=== PATIENT | female | born 1945 ===

== ENCOUNTER 2017-09-12 22:34 | Emergency (ER) | payer SELFPAY ==
[2017-09-12 22:43] VITALS: BP 126/80; PULSE 74; RESP 16; TEMP 98; O2SAT 99
--- NOTE | 2017-09-12 23:11 | ED PDOC ---
Lower Extremity Pain/Injury Time Seen by Provider: 09/12/17 22:53 Chief Complaint (Nursing): Lower Extremity Problem/Injury Chief Complaint (Provider): Pain after a ceiling fell on her while sleeping History Per: Patient History/Exam Limitations: no limitations Onset/Duration Of Symptoms: Mins Current Symptoms Are (Timing): Still Present Additional Complaint(s): 71 yo female with no past medical history presents with torso pain, head pain and right knee pain. PT states she was sleeping when she heard the ceiling crack. PT states she was with her grandson and put her right arm over him. Ceiling landed on the chest/abdomen and left arm/leg. Pt did not take anything for pain. Past Medical History Reviewed: Historical Data, Nursing Documentation, Vital Signs Vital Signs: Last Vital Signs Temp 98.0 F 09/12/17 22:42 Pulse 74 09/12/17 22:42 Resp 16 09/12/17 22:42 BP 126/80 09/12/17 22:42 Pulse Ox 99 09/12/17 22:42 - Medical History PMH: No Chronic Diseases - Surgical History Surgical History: No Surg Hx - Family History Family History: States: No Known Family Hx - Living Arrangements Living Arrangements: With Family - Allergies Allergies/Adverse Reactions: Allergies Allergy/AdvReac Type Severity Reaction Status Date / Time No Known Allergies Allergy Verified 09/12/17 22:43 Review of Systems ROS Statement: Except As Marked, All Systems Reviewed And Found Negative Constitutional: Negative for: Fever, Chills Cardiovascular: Positive for: Chest Pain Gastrointestinal: Positive for: Abdominal Pain Skin: Positive for: Other (Left knee pain, left shoulder pain ) Physical Exam - Reviewed Nursing Documentation Reviewed: Yes Vital Signs Reviewed: Yes - Physical Exam Appears: Positive for: Well, Non-toxic, No Acute Distress Head Exam: Positive for: ATRAUMATIC, NORMAL INSPECTION, NORMOCEPHALIC Skin: Positive for: Normal Color (No ecchymosis ), Warm Eye Exam: Positive for: EOMI, Normal appearance, PERRL ENT: Positive for: Normal ENT Inspection Neck: Positive for: Normal, Painless ROM Cardiovascular/Chest: Positive for: Regular Rate, Rhythm. Negative for: Chest Non Tender Respiratory: Positive for: Normal Breath Sounds. Negative for: Decreased Breath Sounds, Accessory Muscle Use, Respiratory Distress Gastrointestinal/Abdominal: Positive for: Normal Exam, Soft, Tenderness Back: Positive for: Normal Inspection Extremity: Negative for: Normal ROM (Decreased in the left shoulder and the left knee due to pain, no edema ) Neurologic/Psych: Positive for: Alert, Oriented - ECG O2 Sat by Pulse Oximetry: 99 Medical Decision Making Medical Decision Making: Shoulder x-ray: No acute fracture or dislocation Knee x-ray: No acute fracture or dislocation Chest CT: Pending Abdomen CT:Pending Head CT: Pending Disposition - Clinical Impression Clinical Impression: Whole body pain - Patient ED Disposition Is Patient to be Admitted: Transfer of Care - Disposition Disposition: Transfer of Care Disposition Time: 23:55 Condition: STABLE Forms: [facility] (Maltese)
--- NOTE | 2017-09-12 23:54 | ED PDOC ---
- ECG O2 Sat by Pulse Oximetry: 99 (RA) Pulse Ox Interpretation: Normal Medical Decision Making Medical Decision Making: Patient endorsed to functional tester typewritersAly PA-C, at 0000 due to shift change. Pertinent details reviewed. Patient pending CT evaluation, EKG, and further disposition. 0010 EKG: NSR @70bpm (-) ST elevations, QTc 408 0040 EXAM: CT Head Without Intravenous Contrast CLINICAL HISTORY: 71 years old, female; Injury or trauma; Injury Ceiling fell on patient; Initial encounter; Concussion / head injury; Consciousness not specified; Additional info: Pain, ceiling fell on patient while sleeping TECHNIQUE: Axial computed tomography images of the head/brain without intravenous contrast. All CT scans at this facility use one or more dose reduction techniques, viz.: automated exposure control; ma/kV adjustment per patient size (including targeted exams where dose is matched to indication; i.e. head); or iterative reconstruction technique. Coronal and sagittal reformatted images were created and reviewed. COMPARISON: No relevant prior studies available. FINDINGS: Brain: Mild atrophy. No intracranial hemorrhage. No mass. No edema. Ventricles: No hydrocephalus. Bones/joints: No acute fracture. Soft tissues: Unremarkable. Lymph nodes: Probable intraparotid lymph nodes. Sinuses: Scattered minimal to mild mucosal thickening. Tiny RIGHT maxillary retention cyst. Mastoid air cells: No mastoid effusion. Orbits: Unremarkable as visualized. IMPRESSION: 1. No intracranial hemorrhage. 2. Incidental/non-acute findings are described above. Thank you for allowing us to participate in the care of your patient. Dictated and Authenticated by: Baudilio Clemens MD 09/13/2017 12:21 AM Eastern Time ([place] & [place]) EXAM: CT Chest Without Intravenous Contrast CLINICAL HISTORY: 71 years old, female; Pain and injury or trauma; Injury Ceiling fell on patient while sleeping; Initial encounter; Blunt trauma (contusions or hematomas); Other: Left shoulder area; Additional info: Pain, ceiling fell on patient while sleeping TECHNIQUE: Axial computed tomography images of the chest without intravenous contrast. All CT scans at this facility use one or more dose reduction techniques, viz.: automated exposure control; ma/kV adjustment per patient size (including targeted exams where dose is matched to indication; i.e. head); or iterative reconstruction technique. Coronal and sagittal reformatted images were created and reviewed. COMPARISON: No relevant prior studies available. FINDINGS: Limitations: Lack of intravenous contrast. Motion artifact - mild. Lungs: Minimal atelectasis/scarring. No consolidation. Pleural space: No pneumothorax. No significant effusion. Heart: Mild cardiomegaly. No significant pericardial effusion. Bones/joints: No acute fracture. Soft tissues: Unremarkable. Vasculature: Unremarkable. No aneurysm. Lymph nodes: No pathologically enlarged lymph nodes. Other findings: See abdomen CT report for additional details. IMPRESSION: 1. No definite noncontrast CT evidence of visceral injury. 2. Incidental/non-acute findings are described above. Thank you for allowing us to participate in the care of your patient. Dictated and Authenticated by: Baudilio Clemens MD 09/13/2017 12:29 AM Eastern Time ([place] & [place]) EXAM: CT Abdomen and Pelvis Without Intravenous Contrast CLINICAL HISTORY: 71 years old, female; Injury or trauma; Injury Ceiling fell on patient while sleeping; Initial encounter; Blunt; Upper; Additional info: Pain, ceiling fell on patient while sleeping TECHNIQUE: Axial computed tomography images of the abdomen and pelvis without intravenous contrast. All CT scans at this facility use one or more dose reduction techniques, viz.: automated exposure control; ma/kV adjustment per patient size (including targeted exams where dose is matched to indication; i.e. head); or iterative reconstruction technique. COMPARISON: No relevant prior studies available. FINDINGS: Limitations: Lack of intravenous contrast. Motion artifact - mild. Lung bases: See chest CT report for additional details. ABDOMEN: Liver: Fatty infiltration. Gallbladder and bile ducts: No calcified stones. No ductal dilation. Pancreas: Unremarkable. No ductal dilation. Spleen: No splenomegaly. Adrenals: No mass. Kidneys and ureters: No renal calculi. No hydronephrosis. Stomach and bowel: Few scattered diverticula within colon. No associated inflammatory stranding. No definite mural thickening. No obstruction. PELVIS: Appendix: Normal caliber. No inflammation. Bladder: Unremarkable. No stones. Reproductive: Unremarkable as visualized. ABDOMEN and PELVIS: Intraperitoneal space: No significant fluid collection. No free air. Bones/joints: Degenerative changes of lower lumbar spine. No acute fracture. Soft tissues: Unremarkable. Vasculature: Minimal atherosclerotic disease. No aneurysm. Lymph nodes: No pathologically enlarged lymph nodes. IMPRESSION: 1. No definite noncontrast CT evidence of visceral injury. 2. Incidental/non-acute findings are described above. Thank you for allowing us to participate in the care of your patient. Dictated and Authenticated by: Baudilio Clemens MD 09/13/2017 12:42 AM Eastern Time ([place] & [place]) 0100 On exam, patient remains AAOx3, in no acute distress. On exam, neck is supple, lungs CTA, cardiac RRR, abdomen is soft and non-tender, neuro exam shows no focal findings. VSS, stable for discharge. Diagnostic results d/w the patient in great detail. Dx of musculoskeletal pain, contusion d/w the patient. Based on history, exam and diagnostic results plan will be for discharge and outpatient follow up. Advised to follow up with primary care physician/clinic in 1-2 days without fail. Advised to take medication as prescribed. Return to the emergency room at any time for any new or worsening symptoms. Patient states she fully agrees with and understands discharge instructions. States that she agrees with the plan and disposition. Verbalized and repeated discharge instructions and plan. I have given the patient opportunity to ask any additional questions. Disposition Counseled Patient/Family Regarding: Studies Performed, Diagnosis, Need For Followup, Rx Given - Clinical Impression Clinical Impression: Whole body pain, Musculoskeletal pain, Contusion - POA Present On Arrival: Falls Or Trauma - Disposition Referrals: [facility] [Outside] Disposition: Routine/Home Disposition Time: 01:01 Condition: STABLE Additional Instructions: FOLLOW UP WITH PMD/CLINIC IN 1-2 DAYS WITHOUT FAIL. RETURN TO ED WITH ANY NEW OR WORSENING SYMPTOMS. Prescriptions: Acetaminophen [8 Hour] 650 mg PO Q8 PRN #24 tablet.er PRN Reason: Pain, Moderate (4-7) Meloxicam [Mobic] 15 mg PO DAILY #10 tab Instructions: Acute Pain, Adult (DC), Muscle and Bone Pain (DC), Contusion (DC) Forms: [facility] (Indonesian) Print Language: [place] R[place]
--- NOTE | 2017-09-13 00:21 | CT ---
EXAM: CT Head Without Intravenous Contrast CLINICAL HISTORY: 71 years old, female; Injury or trauma; Injury Ceiling fell on patient; Initial encounter; Concussion / head injury; Consciousness not specified; Additional info: Pain, ceiling fell on patient while sleeping TECHNIQUE: Axial computed tomography images of the head/brain without intravenous contrast. All CT scans at this facility use one or more dose reduction techniques, viz.: automated exposure control; ma/kV adjustment per patient size (including targeted exams where dose is matched to indication; i.e. head); or iterative reconstruction technique. Coronal and sagittal reformatted images were created and reviewed. COMPARISON: No relevant prior studies available. FINDINGS: Brain: Mild atrophy. No intracranial hemorrhage. No mass. No edema. Ventricles: No hydrocephalus. Bones/joints: No acute fracture. Soft tissues: Unremarkable. Lymph nodes: Probable intraparotid lymph nodes. Sinuses: Scattered minimal to mild mucosal thickening. Tiny RIGHT maxillary retention cyst. Mastoid air cells: No mastoid effusion. Orbits: Unremarkable as visualized. IMPRESSION: 1. No intracranial hemorrhage. 2. Incidental/non-acute findings are described above.
--- NOTE | 2017-09-13 00:30 | CT ---
EXAM: CT Chest Without Intravenous Contrast CLINICAL HISTORY: 71 years old, female; Pain and injury or trauma; Injury Ceiling fell on patient while sleeping; Initial encounter; Blunt trauma (contusions or hematomas); Other: Left shoulder area; Additional info: Pain, ceiling fell on patient while sleeping TECHNIQUE: Axial computed tomography images of the chest without intravenous contrast. All CT scans at this facility use one or more dose reduction techniques, viz.: automated exposure control; ma/kV adjustment per patient size (including targeted exams where dose is matched to indication; i.e. head); or iterative reconstruction technique. Coronal and sagittal reformatted images were created and reviewed. COMPARISON: No relevant prior studies available. FINDINGS: Limitations: Lack of intravenous contrast. Motion artifact - mild. Lungs: Minimal atelectasis/scarring. No consolidation. Pleural space: No pneumothorax. No significant effusion. Heart: Mild cardiomegaly. No significant pericardial effusion. Bones/joints: No acute fracture. Soft tissues: Unremarkable. Vasculature: Unremarkable. No aneurysm. Lymph nodes: No pathologically enlarged lymph nodes. Other findings: See abdomen CT report for additional details. IMPRESSION: 1. No definite noncontrast CT evidence of visceral injury. 2. Incidental/non-acute findings are described above.
--- NOTE | 2017-09-13 00:43 | CT ---
EXAM: CT Abdomen and Pelvis Without Intravenous Contrast CLINICAL HISTORY: 71 years old, female; Injury or trauma; Injury Ceiling fell on patient while sleeping; Initial encounter; Blunt; Upper; Additional info: Pain, ceiling fell on patient while sleeping TECHNIQUE: Axial computed tomography images of the abdomen and pelvis without intravenous contrast. All CT scans at this facility use one or more dose reduction techniques, viz.: automated exposure control; ma/kV adjustment per patient size (including targeted exams where dose is matched to indication; i.e. head); or iterative reconstruction technique. COMPARISON: No relevant prior studies available. FINDINGS: Limitations: Lack of intravenous contrast. Motion artifact - mild. Lung bases: See chest CT report for additional details. ABDOMEN: Liver: Fatty infiltration. Gallbladder and bile ducts: No calcified stones. No ductal dilation. Pancreas: Unremarkable. No ductal dilation. Spleen: No splenomegaly. Adrenals: No mass. Kidneys and ureters: No renal calculi. No hydronephrosis. Stomach and bowel: Few scattered diverticula within colon. No associated inflammatory stranding. No definite mural thickening. No obstruction. PELVIS: Appendix: Normal caliber. No inflammation. Bladder: Unremarkable. No stones. Reproductive: Unremarkable as visualized. ABDOMEN and PELVIS: Intraperitoneal space: No significant fluid collection. No free air. Bones/joints: Degenerative changes of lower lumbar spine. No acute fracture. Soft tissues: Unremarkable. Vasculature: Minimal atherosclerotic disease. No aneurysm. Lymph nodes: No pathologically enlarged lymph nodes. IMPRESSION: 1. No definite noncontrast CT evidence of visceral injury. 2. Incidental/non-acute findings are described above.
--- NOTE | 2017-09-13 08:35 | RAD ---
PROCEDURE: Radiographs of the Left Shoulder HISTORY: pain, ceiling fell on patient while sleeping COMPARISON: No prior. FINDINGS: BONES: No acute fracture. JOINTS: Acromioclavicular joint degenerative changes. SOFT TISSUES: Normal. OTHER FINDINGS: None. IMPRESSION: No demonstrated fracture or dislocation.
--- NOTE | 2017-09-13 08:35 | RAD ---
PROCEDURE: Right Knee Radiographs. HISTORY: pain, ceiling fell on patient COMPARISON: None. FINDINGS: BONES: No acute fracture. JOINTS: Unremarkable. JOINT EFFUSION: None. OTHER FINDINGS: None. IMPRESSION: No demonstrated fracture or dislocation.
--- NOTE | 2017-09-13 09:10 | CARD ---
APPROVED REPORT EKG Measurement Heart [id number] CT [id number] <Conclusion> Normal sinus rhythm with sinus arrhythmia normal ECG
== END 2017-09-13 01:25 | disposition home or self-care (01) ==
LOC: H.ER 22:34
DX: S09.90XA Unspecified injury of head, initial encounter (principal); S80.01XA Contusion of right knee, initial encounter; W20.8XXA Other cause of strike by thrown, projected or falling object, initial encounter; Y92.89 Other specified places as the place of occurrence of the external cause; M79.1 Myalgia

== ENCOUNTER 2017-09-21 20:51 | Emergency (ER) | payer SELFPAY ==
[2017-09-21 20:57] VITALS: TEMP 98.2
--- NOTE | 2017-09-21 21:28 | ED PDOC ---
HPI: Headache Time Seen by Provider: 09/21/17 21:13 Chief Complaint (Nursing): Headache History Per: Patient History/Exam Limitations: no limitations Additional Complaint(s): 71 yo F reports that part of her ceiling fell on her while she was sleeping last week, since then has had headache, feeling dizzy, bodyaches. Otherwise: (- ) loss of consciousness, (-) nausea, (-) vomiting, (-) severe headache, (-) other injury, (-) neck pain, (-) fever, (-) chest pain, (-) dyspnea, (-) subjective neurologic deficit, (-) anticoagulants, (+) daily baby aspirin use. Past Medical History Vital Signs: Last Vital Signs Temp 98.2 F 09/21/17 20:54 Pulse 71 09/21/17 20:54 Resp 16 09/21/17 20:54 BP 143/76 09/21/17 20:54 Pulse Ox 100 09/21/17 20:54 - Medical History PMH: Arthritis - Family History Family History: States: Unknown Family Hx - Home Medications Home Medications: Ambulatory Orders Medication Instructions Recorded Acetaminophen [8 Hour] 650 mg PO Q8 PRN #24 tablet.er 09/13/17 Meloxicam [Mobic] 15 mg PO DAILY #10 tab 09/13/17 - Allergies Allergies/Adverse Reactions: Allergies Allergy/AdvReac Type Severity Reaction Status Date / Time No Known Allergies Allergy Verified 09/12/17 22:43 Review of Systems Constitutional: Positive for: Other (bodyaches). Negative for: Fever Cardiovascular: Negative for: Chest Pain, Palpitations Respiratory: Negative for: Cough, Shortness of Breath Gastrointestinal: Negative for: Vomiting, Diarrhea Skin: Negative for: Rash Neurological: Positive for: Headache, Dizziness. Negative for: Weakness, Numbness Physical Exam - Physical Exam Comments: GENERALIZED APPEARANCE: Patient is AAO x 3 in no acute distress. SKIN: Warm, dry; (-) cyanosis. HEAD: (-) swelling and tenderness, with no palpable bony defect. EYES: (-) conjunctival pallor, (-) scleral icterus, (-) nystagmus. ENMT: Mucous membranes moist. (-) Vigil's sign. TMs: (-) blood. Nose: (-) tenderness, (-) rhinorrhea. No oral trauma. Pharynx clear. Airway patent: (-) stridor. Full ROM of mandible without pain. NECK: (-) tenderness, (-) stiffness, (-) lymphadenopathy. CHEST AND RESPIRATORY: (-) chest wall tenderness. Lungs: (-) rales, (-) rhonchi , (-) wheezes; breath sounds equal bilaterally. HEART AND CARDIOVASCULAR: (-) irregularity; (-) murmur, (-) gallop. ABDOMEN AND GI: Soft; (-) tenderness. BACK: (-) tenderness. EXTREMITIES: (-) deformity, (-) tenderness, (-) limitation of motion. NEURO AND PSYCH: GCS=15. Mental status as above. Has full memory of episode; car greaser : Pupils equal and reactive. EOMI. (-) facial asymmetry. Tongue and uvula midline. Strength 5/5 in all extremities. Gait steady. No gross sensory deficits. - ECG O2 Sat by Pulse Oximetry: 100 Medical Decision Making Medical Decision Making: Plan : - CT head - Tylenol PO CT head w/o contrast : FINDINGS: HEMORRHAGE: No intracranial hemorrhage. BRAIN: No mass effect or edema. Mild atrophy is again noted. VENTRICLES: Unremarkable. No hydrocephalus. CALVARIUM: Unremarkable. PARANASAL SINUSES: Unremarkable as visualized. No significant inflammatory changes. MASTOID AIR CELLS: Unremarkable as visualized. No inflammatory changes. OTHER FINDINGS: None. IMPRESSION: No evidence of acute intracranial hemorrhage mass effect or midline shift. No evidence of significant interval change compared to the previous exam dated . On re-evaluation, patient is sleeping comfortably in the ER, arouses easily. On exam, patient remains AAOx3, in no acute distress. Repeat neuro exam shows no focal findings. Diagnostic results d/w the patient and family member in great detail. Based on history, exam and diagnostic results, plan will be for outpatient follow up. Patient instructed to follow-up with pmd in 1-2 days without fail. Advised to continue taking tylenol for headache. Return to the emergency room at any time for any new or worsening symptoms. Patient states she fully agrees with and understands discharge instructions. States that she agrees with the plan and disposition. Verbalized and repeated discharge instructions and plan. I have given the patient opportunity to ask any additional questions. Disposition - Clinical Impression Clinical Impression: Headache, Head injury - Patient ED Disposition Is Patient to be Admitted: No Counseled Patient/Family Regarding: Studies Performed, Diagnosis, Need For Followup - Disposition Disposition: Routine/Home Disposition Time: 22:40 Condition: STABLE Additional Instructions: Thank you for letting us take care of you today. You were treated for head injury, headache. The emergency medical care you received today was directed at your acute symptoms. Take only tylenol for pain. It may take several days for your symptoms to resolve. Return to the Emergency Department if your symptoms worsen, do not improve, or if you have any other problems. Please contact your doctor in 2 days for re-evaluation and follow up. Bring any paperwork you were given at discharge with you along with any medications you are taking to your follow up visit. Our treatment cannot replace ongoing medical care by a primary care provider (PCP) outside of the emergency department. Thank you for allowing the [facility] team to be part of your care today. If you had a CT : A Radiologist will review the ED reading if any change in treatment is needed we will contact you. Instructions: Closed Head Injury, Headache, Adult (DC) Forms: [employer] (Botswanan) Print Language: JAPANESE - PA / IPHONE DEVELOPER / Resident Statement /DO has reviewed & agrees with the documentation as recorded.
--- NOTE | 2017-09-21 22:13 | CT ---
PROCEDURE: CT HEAD WITHOUT CONTRAST. HISTORY: headache COMPARISON: Comparison is made with the previous study dated 09/12/2017 TECHNIQUE: Axial computed tomography images were obtained through the head/brain without intravenous contrast. Radiation dose: Total exam DLP = 709.75 mGy-cm. This CT exam was performed using one or more of the following dose reduction techniques: Automated exposure control, adjustment of the mA and/or kV according to patient size, and/or use of iterative reconstruction technique. FINDINGS: HEMORRHAGE: No intracranial hemorrhage. BRAIN: No mass effect or edema. Mild atrophy is again noted. VENTRICLES: Unremarkable. No hydrocephalus. CALVARIUM: Unremarkable. PARANASAL SINUSES: Unremarkable as visualized. No significant inflammatory changes. MASTOID AIR CELLS: Unremarkable as visualized. No inflammatory changes. OTHER FINDINGS: None. IMPRESSION: No evidence of acute intracranial hemorrhage mass effect or midline shift. No evidence of significant interval change compared to the previous exam dated 09/12/2017.
[2017-09-21 23:25] VITALS: BP 120/64; PULSE 78; RESP 18; O2SAT 99
== END 2017-09-21 23:07 | disposition home or self-care (01) ==
LOC: H.ER 20:51
DX: R51 Headache (principal)